=== PATIENT | male | born 1960 | race African-American/Black ===

== ENCOUNTER 2023-01-15 05:32 | Observation (INO) | payer OTHER ==
[2023-01-05 13:43] VITALS: BMI 28.4
[2023-01-15] MEDS ORDERED: Lidocaine 1% MPF 2 ML VIAL ONE (06:34)
[2023-01-15] MEDS ORDERED: Levofloxacin 500 mg/D5W 100 ml Premix Bag ONE ×2 (06:35→07:24)
[2023-01-15] MEDS ORDERED: HYDROmorphone 0.5 MG/0.5 ML SYRINGE ONE (07:11)
[2023-01-15] MEDS ORDERED: Fentanyl 250 MCG/5 ML VIAL ONE (07:11)
[2023-01-15] MEDS ORDERED: SUGAMMADEX SODIUM 200 MG/2 ML VIAL ONE (07:12)
[2023-01-15] MEDS ORDERED: Vasopressin 20 UNITS/ML VIAL ONE (07:16)
[2023-01-15] MEDS ORDERED: Phenylephrine 10 MG/ML VIAL ONE (07:16)
[2023-01-15] MEDS ORDERED: Lidocaine 1% PF 5 ML VIAL ONE (07:29)
[2023-01-15] MEDS ORDERED: PROPOFOL 200 MG/20 ML VIAL ONE (07:29)
[2023-01-15] MEDS ORDERED: Ondansetron PF 4 MG/2 ML Vial ONE (07:29)
[2023-01-15] MEDS ORDERED: Dexamethasone 20 MG/5 ML VIAL ONE (07:29)
[2023-01-15] MEDS ORDERED: hydrALAZINE 20 MG/ML VIAL ONE (08:18)
[2023-01-15] MEDS ORDERED: Mag-Al 1200 mg/1200 mg/30 ML UDCUP PO PRN (09:24)
[2023-01-15] MEDS ORDERED: Hyoscyamine SL 0.125 MG TAB SL PRN (09:24)
[2023-01-15] MEDS ORDERED: Oxybutynin 5 MG TAB PO PRN (09:24)
[2023-01-15] MEDS ORDERED: Morphine 2 MG/ML VIAL SLOW IVP PRN (09:24)
[2023-01-15] MEDS ORDERED: hydrALAZINE 20 MG/ML VIAL SLOW IVP PRN (09:24)
[2023-01-15] MEDS ORDERED: Acetaminophen 500 MG TAB PO PRN (09:24)
[2023-01-15] MEDS ORDERED: Ondansetron PF 4 MG/2 ML Vial IVP PRN (09:24)
[2023-01-15] MEDS ORDERED: diphenhydrAMINE 25 MG CAP PO PRN (09:24)
[2023-01-15] MEDS ORDERED: traMADol HCl 50 MG TAB PO PRN (09:26)
[2023-01-15] MEDS ORDERED: Dexmedetomidine 200 MCG/2 ML VIAL ONE (09:36)
[2023-01-15] MEDS ORDERED: Midazolam HCl 2 mg/2 ml Vial ONE (09:44)
[2023-01-15] MEDS ORDERED: Ondansetron HCl/PF 4 MG/2 ML Vial IVP PRN (09:56)
[2023-01-15] MEDS ORDERED: HYDROmorphone 2 MG/ML VIAL SLOW IVP PRN (09:56)
[2023-01-15] MEDS ORDERED: Morphine Sulfate 2 MG/ML SYRINGE SLOW IVP PRN (09:56)
[2023-01-15] MEDS ORDERED: Meperidine HCl/PF 25 MG/ML VIAL SLOW IVP PRN (09:56)
[2023-01-15] MEDS ORDERED: Promethazine HCl 25 MG/ML VIAL IM PRN (09:56)
[2023-01-15] MEDS ORDERED: Promethazine HCl 25 MG/ML VIAL ONE (10:07)
[2023-01-15] MEDS: Sacubitril 49 MG/Valsartan 51 MG TABLET PO SCH (20:07)
[2023-01-15] MEDS: Carvedilol 25 MG TAB PO SCH (20:07)
[2023-01-15] MEDS: Docusate 100 MG CAP PO SCH (20:07)
[2023-01-15] MEDS ORDERED: Sacubitril 49 MG/Valsartan 51 MG TABLET PO SCH (21:00)
[2023-01-16 05:48] LABS: #Monocytes 1.3 thou/uL (0.11-0.59); #Neutrophils 8.5 thou/uL (1.40-6.50); %Basophils 0.3 % (0.0-1.0); %Eosinophils 0.1 % (0.0-10.0); %Lymphocytes 17.2 % (21.0-51.0); %Monocytes 10.8 % (0.0-10.0); %Neutrophils 71.1 % (42.0-75.0); Hemoglobin 15.6 g/dL (14.0-18.0); Mean Corpuscular HGB CONC 34.1 g/dL (32.0-36.0); Mean Corpuscular Hemoglobin 29.3 pg (27.0-31.0); Mean Corpuscular Volume 85.9 fl (78.0-98.0); Mean Platelet Volume 9.5 fL (7.4-10.4); Platelet Count 292 10x3/uL (130-400); RBC Distribution Width 13.6 % (11.5-14.5); Red Blood Cell (RBC) Count 5.33 mill/uL (4.70-6.10)
[2023-01-16 06:12] LABS: Anion Gap 14 mmol/L (10-20); BUN (Urea Nitrogen) 21 mg/dL (8.4-25.7); Calc. Creatinine Clearance 64 mL/min (70-130); Calcium 9.1 mg/dL (7.8-10.44); Carbon Dioxide 20 mmol/L (23-31); Chloride 108 mmol/L (98-107); Estimated GFR 55; Glucose 103 mg/dL (80-115); Potassium 3.8 mmol/L (3.5-5.1); Sodium 138 mmol/L (136-145)
[2023-01-16] MEDS: Docusate 100 MG CAP PO SCH (07:59)
[2023-01-16] MEDS: Carvedilol 25 MG TAB PO SCH (08:00)
[2023-01-16] MEDS: Sacubitril 49 MG/Valsartan 51 MG TABLET PO SCH (08:00)
[2023-01-16] MEDS ORDERED: Amlodipine 10 MG TAB PO SCH (09:00)
[2023-01-16] MEDS ORDERED: Bicalutamide 50 MG TAB PO SCH (09:00)
[2023-01-16] MEDS ORDERED: Non-Formulary Item 1 EACH (Lisinopril [Lisinopril] 40 MG Tablet) PO SCH (09:00)
[2023-01-16 16:31] VITALS: BP 129/88; TEMP 98.3
== END 2023-01-16 17:05 | disposition home or self-care (01) ==
LOC: SDC 05:32 → SURG B 09:24
PROVIDERS: ADMIT Urology; ATTEND Urology
PROC: 0VT08ZZ Resection of Prostate, Via Natural or Artificial Opening Endoscopic (ICD-10-PCS; principal; 2023-01-15)
DX: C61 Malignant neoplasm of prostate (principal); N40.1 Benign prostatic hyperplasia with lower urinary tract symptoms; R33.8 Other retention of urine; R97.20 Elevated prostate specific antigen [PSA]; N32.89 Other specified disorders of bladder; Z88.8 Allergy status to other drugs, medicaments and biological substances; Z79.899 Other long term (current) drug therapy
CPT/HCPCS: 36415; 80048; 85025; 88305; 96374; G0378; J0360; J1100; J1170; J1956; J2250; J2370; J2405; J2550; J2704; J3010